=== PATIENT | female | born 1990 | race Caucasian/White ===

== ENCOUNTER 2019-04-16 09:57 | Emergency (ER) | payer MEDICAID ==
[~2019-04-16] VITALS: Ht 157.5 cm; Wt 61.2 kg
[2019-04-16 10:15] VITALS: BP_SYST 119
--- NOTE | 2019-04-16 10:15 | NUR ---
Patient to ER bed 7 to gown for evaluation. Side rails up.
--- NOTE | 2019-04-16 10:20 | NUR ---
pt arrives from home w/ c/o jodi ear pain, the right more than the left. Pt also has vertigo and nausea. pt states that she was seen at her PMD, urgent care, and ER. Symptoms have not resolved
--- NOTE | 2019-04-16 10:22 | NUR ---
CATIE Calix at bedside examining patient.
[2019-04-16 10:30] VITALS: BP_SYST 119
--- NOTE | 2019-04-16 10:31 | NUR ---
Patient given written and verbal discharge instructions and verbalizes understanding. ER MD discussed with patient the results and treatment provided. Patient in stable condition. ID arm band removed. Rx of augmentin given. Patient educated on pain management and to follow up with PMD. Pain Scale 3/10. Opportunity for questions provided and answered. Medication side effect fact sheet provided.
== END 2019-04-16 10:31 | disposition home or self-care (01) ==
LOC: SED 09:57
DX: H65.91 Unspecified nonsuppurative otitis media, right ear (principal); R42 Dizziness and giddiness; E07.9 Disorder of thyroid, unspecified; Z86.2 Personal history of diseases of the blood and blood-forming organs and certain disorders involving the immune mechanism
CPT/HCPCS: 99283

== ENCOUNTER 2019-04-26 13:23 | Emergency (ER) | payer MEDICAID ==
[~2019-04-26] VITALS: Ht 157.5 cm; Wt 66.7 kg
[2019-04-26 13:52] VITALS: BP_SYST 125
[2019-04-26 14:54] LABS: BILIRUBIN,URINE NEGATIVE (NEGATIVE); BLOOD, URINE NEGATIVE (NEGATIVE); CLARITY/URINE CLEAR (CLEAR); COLOR,URINE YELLOW (YELLOW); GLUCOSE,URINE NEGATIVE (NEGATIVE); KETONES,URINE NEGATIVE (NEGATIVE); LEUKOCYTE ESTERASE ,URINE NEGATIVE (NEGATIVE); NITRITE, URINE NEGATIVE (NEGATIVE); PROTEIN URINE NEGATIVE (NEGATIVE); UROBILINOGEN,URINE 0.2 (0.2-1.0)
[2019-04-26] MEDS ORDERED: KETOROLAC TROMETHAMINE 60 MG/2 ML VIAL IM ONE (15:15)
[2019-04-26 15:41] VITALS: BP_SYST 122
== END 2019-04-26 15:41 | disposition home or self-care (01) ==
LOC: SED 13:23
DX: S39.012A Strain of muscle, fascia and tendon of lower back, initial encounter (principal); R03.0 Elevated blood-pressure reading, without diagnosis of hypertension; E07.9 Disorder of thyroid, unspecified; Z88.8 Allergy status to other drugs, medicaments and biological substances; Z86.2 Personal history of diseases of the blood and blood-forming organs and certain disorders involving the immune mechanism; X58.XXXA Exposure to other specified factors, initial encounter; Y93.89 Activity, other specified; Y92.89 Other specified places as the place of occurrence of the external cause; Y99.8 Other external cause status
CPT/HCPCS: 81003; 81025; 96372; 99283; J1885

== ENCOUNTER 2019-07-27 15:29 | Emergency (ER) | payer MEDICAID ==
[~2019-07-27] VITALS: Ht 157.5 cm; Wt 72.6 kg
[2019-07-27 15:40] VITALS: BP_SYST 122
--- NOTE | 2019-07-27 17:32 | NUR ---
Note nickie in EDM - 07/28/19 at 0132 by [email or web address] Patient brougt in complaining of constipation and diffuse abdomnial pain x 3 days. Reports that stool is hard and has to strain to have bowel movement. No other Complaints/injuries per patient or as noted. Will continue to monitor.
--- NOTE | 2019-07-27 17:35 | NUR ---
Patient to [facility] for evaluation. Side rails up.
--- NOTE | 2019-07-27 17:36 | NUR ---
ER at bedside examining patient.
--- NOTE | 2019-07-27 17:37 | NUR ---
Patient brougt in complaining of constipation and diffuse abdomnial pain x 3 days. Reports that stool is hard and has to strain to have bowel movement. No other Complaints/injuries per patient or as noted. Will continue to monitor.
[2019-07-27 17:42] VITALS: BP_SYST 122
--- NOTE | 2019-07-27 17:42 | NUR ---
Patient given written and verbal discharge instructions and verbalizes understanding. ER MD discussed with patient the results and treatment provided. Patient in stable condition. ID arm band removed. IV catheter removed intact and dressing applied, no active bleeding. Rx of Milk of Magnesia given. Patient educated on pain management and to follow up with PMD. Pain Scale 0/10 Opportunity for questions provided and answered. Medication side effect fact sheet provided.
== END 2019-07-27 17:42 | disposition home or self-care (01) ==
LOC: SED 15:29
DX: K59.00 Constipation, unspecified (principal); E07.9 Disorder of thyroid, unspecified; Z86.2 Personal history of diseases of the blood and blood-forming organs and certain disorders involving the immune mechanism; Z88.8 Allergy status to other drugs, medicaments and biological substances
CPT/HCPCS: 81002; 81025; 99282